=== PATIENT | male | born 1940 | race Caucasian/White ===

== ENCOUNTER → 2018-03-09 | Outpatient (CLI) | payer MEDICARE ==
[~2018-03-09] MED LIST: REGADENOSON 0.4 MG/5 ML SYRINGE ONE
== END | disposition home or self-care (01) ==
LOC: CFH 06:40
PROVIDERS: ATTEND Internal Medicine Cardiovascular Disease
DX: I25.10 Atherosclerotic heart disease of native coronary artery without angina pectoris (principal); I10 Essential (primary) hypertension; I25.2 Old myocardial infarction
CPT/HCPCS: 78452; 93017; 93306; J2785; A9502

== ENCOUNTER 2018-09-16 11:05 | Inpatient (IN) | payer MEDICARE ==
[~2018-09-16] VITALS: Ht 180.3 cm; Wt 91.0 kg
--- NOTE | 2018-09-16 11:39 | NUR ---
Assumed care of patient. Patient reports taking nightly meds last night and feels as if one is still suck in his throat. C/O difficulty swallowing and throat pain. Placed on NIBP and pulse ox. at bedside. Will continue to monitor.
[2018-09-16] MEDS ORDERED: ESOM40CA PO (11:50)
[2018-09-16] MEDS ORDERED: FLUT12HF2 INH (11:50)
[2018-09-16] MEDS ORDERED: TRIA1CAP3 PO (11:50)
[2018-09-16] MEDS ORDERED: PARO40TA61 PO (11:50)
[2018-09-16] MEDS ORDERED: ASPI-496 PO (11:50)
[2018-09-16] MEDS ORDERED: CHOL2000 PO (11:50)
[2018-09-16] MEDS ORDERED: LOSA100T7 PO (11:50)
[2018-09-16] MEDS ORDERED: TIOT18CA INH (11:50)
[2018-09-16] MEDS ORDERED: CARV-39 PO (11:50)
[2018-09-16] MEDS ORDERED: POTA10CA PO (11:50)
[2018-09-16] MEDS ORDERED: ARMO250T2 PO (11:50)
[2018-09-16] MEDS ORDERED: CLON1TAB11 PO (11:50)
[2018-09-16] MEDS ORDERED: ATOR80TA PO (11:50)
[2018-09-16] MEDS ORDERED: TIOT4MIS5 INH (11:50)
[2018-09-16] MEDS ORDERED: AMLO-150 PO (11:50)
[2018-09-16] MEDS ORDERED: SODIUM CHLORIDE 0.9% 1,000 ML IV ONE (12:00)
[2018-09-16 12:08] LABS: MEAN CORPUSCULAR HEMOGLOBIN 30.8 pg (27.5-34.5); MEAN CORPUSCULAR HGB CONC 33.9 g/dL (33.2-36.2); MEAN CORPUSCULAR VOLUME 90.8 fL (81-97); MEAN PLATELET VOLUME 6.7 fL (7.4-10.4); PLATELET COUNT 308 x10^3/uL (130-400); RED BLOOD COUNT 4.31 x10^6/uL (4.38-5.82); RED CELL DISTRIBUTION WIDTH 13.7 % (9.4-14.8)
[2018-09-16 12:21] LABS: INTERNATIONAL NORMALIZED RATIO 1.06 (0.93-1.1); PROTHROMBIN TIME 11.2 Seconds (9.6-11.5)
[2018-09-16 12:26] LABS: ALBUMIN 3.6 g/dL (3.4-5.0); ANION GAP 9 mmol/L (5-15); CALCIUM 8.7 mg/dL (8.5-10.1); CHLORIDE 89 mmol/L (98-107)
[2018-09-16 12:31] LABS: ALANINE AMINOTRANSFERASE 29 U/L (12-78); ALKALINE PHOSPHATASE 97 U/L (45-117); BILIRUBIN,TOTAL 1.3 mg/dL (0.2-1.0); CREATININE 0.78 mg/dL (0.7-1.3); TOTAL PROTEIN 6.7 g/dL (6.4-8.2)
[2018-09-16 12:36] LABS: MD YES
[2018-09-16 12:38] LABS: <RBC MORPHOLOGY> NORMAL; BANDS%(MANUAL) 7 % (0-7); EOS#(MANUAL) 0.23 x10^3/uL (0.0-0.4); EOS% (MANUAL) 1 % (1-7); LYMPH#(MANUAL) 0.91 x10^3/uL (1-3.4); LYMPHS% (MANUAL) 4 % (22-44); MONOS% (MANUAL) 7 % (2-9); SEG#(MANUAL) 18.47 x10^3/uL (1.8-6.8); SEGS% (MANUAL) 81 % (42-75)
[2018-09-16 12:39] LABS: <PLATELET ESTIMATE> ADEQUATE; <PLT MORPHOLOGY> NORMAL PLT MORPH
[2018-09-16] MEDS ORDERED: CEFTRIAXONE PMX 1GM/50ML 50 ML ONE (12:59)
[2018-09-16] MEDS ORDERED: AZITHROMYCIN 500 MG in SODIUM CHLORIDE 0.9% 250 ML IV ONE (13:00)
[2018-09-16] MEDS ORDERED: CEFTRIAXONE PMX 1GM/50ML 50 ML IV ONE (13:00)
--- NOTE | 2018-09-16 13:01 | NUR ---
Delon cali. NAD.
[2018-09-16] MEDS ORDERED: MORPHINE SULFATE 4 MG/ML, 1ML ONE (13:07)
[2018-09-16] MEDS ORDERED: morphine SULFATE 10 MG/ML, 1ML IVPush ONE (13:30)
--- NOTE | 2018-09-16 14:01 | NUR ---
Zithromax viraj. VSS. No other needs.
--- NOTE | 2018-09-16 14:27 | NUR ---
Report to MIRIAM Danielle.
[2018-09-16 15:18] VITALS: BP 162/69
[2018-09-16] MEDS ORDERED: MORPHINE SULFATE 4 MG/ML, 1ML IVPush PRN (16:30)
[2018-09-16] MEDS: AMPICILLIN/SULBACTAM 3 GM in SODIUM CHLORIDE 0.9% 100 ML IV SCH (18:37)
[2018-09-16] MEDS: D5%-0.9% NACL 1,000 ML IV SCH (20:04)
[2018-09-16 20:13] VITALS: BP 141/64
[2018-09-16] MEDS ORDERED: ALBUTEROL/IPRATROPIUM 2.5MG/0.5MG, 3 ML ONE (21:30)
[2018-09-16] MEDS: MORPHINE SULFATE 4 MG/ML, 1ML IVPush PRN (21:55)
[2018-09-16] MEDS: HEPARIN 5,000 UNITS/ML, 1ML SQ SCH (21:55)
[2018-09-17] MEDS: AMPICILLIN/SULBACTAM 3 GM in SODIUM CHLORIDE 0.9% 100 ML IV SCH ×4 (00:42→18:04)
[2018-09-17 01:16] VITALS: BP 138/70
[2018-09-17] MEDS: D5%-0.9% NACL 1,000 ML IV SCH ×3 (04:13→18:41)
[2018-09-17] MEDS: MORPHINE SULFATE 4 MG/ML, 1ML IVPush PRN ×2 (04:13→11:21)
[2018-09-17 05:02] LABS: MEAN CORPUSCULAR HEMOGLOBIN 31.2 pg (27.5-34.5); MEAN CORPUSCULAR HGB CONC 33.7 g/dL (33.2-36.2); MEAN CORPUSCULAR VOLUME 92.6 fL (81-97); MEAN PLATELET VOLUME 7.2 fL (7.4-10.4); PLATELET COUNT 274 x10^3/uL (130-400); RED BLOOD COUNT 4.24 x10^6/uL (4.38-5.82); RED CELL DISTRIBUTION WIDTH 13.8 % (9.4-14.8)
[2018-09-17 05:10] LABS: ANION GAP 3 mmol/L (5-15); CHLORIDE 95 mmol/L (98-107)
[2018-09-17 05:11] LABS: CREATININE 0.82 mg/dL (0.7-1.3)
[2018-09-17 05:53] LABS: BASOPHILS # (AUTO) 0.01 x10^3/uL (0-0.1); BASOPHILS % (AUTO) 0 % (0-1); EOSINOPHILS # (AUTO) 0.46 x10^3/uL (0-0.4); EOSINOPHILS % (AUTO) 3 % (1-7); LYMPHOCYTES # (AUTO) 0.78 x10^3/uL (1-3.4); LYMPHOCYTES % (AUTO) 4 % (22-44); MD SCAN; MONOCYTES % (AUTO) 5 % (2-9); NEUTROPHILS # (AUTO) 15.87 x10^3/uL (1.8-6.8); NEUTROPHILS % (AUTO) 89 % (42-75)
[2018-09-17] MEDS: HEPARIN 5,000 UNITS/ML, 1ML SQ SCH ×3 (06:13→21:56)
[2018-09-17] MEDS: ALBUTEROL/IPRATROPIUM 2.5MG/0.5MG, 3 ML NPPB SCH ×4 (06:55→18:54)
[2018-09-17 07:35] VITALS: BP 127/63
[2018-09-17] MEDS: PANTOPRAZOLE 40 MG IV IVPush SCH (09:12)
[2018-09-17 13:25] VITALS: BP 126/67
[2018-09-17] MEDS: methylPREDNISolone SOD SUCC 40 MG/ML IV SCH (16:43)
[2018-09-17 20:02] VITALS: BP 149/71
[2018-09-18] MEDS: AMPICILLIN/SULBACTAM 3 GM in SODIUM CHLORIDE 0.9% 100 ML IV SCH ×4 (00:23→18:03)
[2018-09-18] MEDS: D5%-0.9% NACL 1,000 ML IV SCH ×3 (03:29→22:40)
[2018-09-18 03:55] VITALS: BP 134/72
[2018-09-18] MEDS: methylPREDNISolone SOD SUCC 40 MG/ML IV SCH ×2 (04:38→16:20)
[2018-09-18 05:19] LABS: ANION GAP 6 mmol/L (5-15); CALCIUM 7.7 mg/dL (8.5-10.1); CHLORIDE 102 mmol/L (98-107); CREATININE 0.77 mg/dL (0.7-1.3)
[2018-09-18] MEDS: HEPARIN 5,000 UNITS/ML, 1ML SQ SCH ×2 (05:42→16:20)
[2018-09-18 06:12] LABS: BASOPHILS % (AUTO) 0 % (0-1); EOSINOPHILS % (AUTO) 0 % (1-7); LYMPHOCYTES # (AUTO) 0.32 x10^3/uL (1-3.4); LYMPHOCYTES % (AUTO) 4 % (22-44); MD NO; MEAN CORPUSCULAR HEMOGLOBIN 30.9 pg (27.5-34.5); MEAN CORPUSCULAR HGB CONC 33.6 g/dL (33.2-36.2); MEAN CORPUSCULAR VOLUME 91.9 fL (81-97); MEAN PLATELET VOLUME 7.2 fL (7.4-10.4); MONOCYTES # (AUTO) 0.22 x10^3/uL (0.2-0.8); MONOCYTES % (AUTO) 2 % (2-9); NEUTROPHILS # (AUTO) 8.56 x10^3/uL (1.8-6.8); NEUTROPHILS % (AUTO) 94 % (42-75); PLATELET COUNT 236 x10^3/uL (130-400); RED BLOOD COUNT 3.76 x10^6/uL (4.38-5.82); RED CELL DISTRIBUTION WIDTH 13.4 % (9.4-14.8)
[2018-09-18 07:20] VITALS: BP 137/64
[2018-09-18] MEDS: ALBUTEROL/IPRATROPIUM 2.5MG/0.5MG, 3 ML NPPB SCH ×4 (08:15→20:00)
[2018-09-18] MEDS: PANTOPRAZOLE 40 MG IV IVPush SCH (12:17)
[2018-09-18 12:40] VITALS: BP 164/76
--- NOTE | 2018-09-18 15:16 | NUR ---
RECOMMEND: CHOPPED DIET WITH NECTAR THICK LIQUIDS; STRICT ASPIRATION PRECAUTIONS - ORANGE SHEET IN ROOM Addendum: 09/18/18 at 1517 by Misti ZUNIGA Amended: Links added.
[2018-09-18 21:15] VITALS: BP 160/68
[2018-09-19] MEDS: AMPICILLIN/SULBACTAM 3 GM in SODIUM CHLORIDE 0.9% 100 ML IV SCH ×3 (00:32→12:32)
[2018-09-19] MEDS: ALBUTEROL/IPRATROPIUM 2.5MG/0.5MG, 3 ML NPPB SCH ×5 (00:45→19:21)
[2018-09-19] MEDS: methylPREDNISolone SOD SUCC 40 MG/ML IV SCH (04:31)
[2018-09-19 04:38] VITALS: BP 138/68
[2018-09-19 05:26] LABS: BASOPHILS # (AUTO) 0.01 x10^3/uL (0-0.1); BASOPHILS % (AUTO) 0 % (0-1); EOSINOPHILS % (AUTO) 3 % (1-7); LYMPHOCYTES # (AUTO) 0.57 x10^3/uL (1-3.4); LYMPHOCYTES % (AUTO) 4 % (22-44); MD NO; MEAN CORPUSCULAR HEMOGLOBIN 31.4 pg (27.5-34.5); MEAN CORPUSCULAR HGB CONC 34.2 g/dL (33.2-36.2); MEAN CORPUSCULAR VOLUME 91.7 fL (81-97); MEAN PLATELET VOLUME 7.2 fL (7.4-10.4); MONOCYTES % (AUTO) 3 % (2-9); NEUTROPHILS # (AUTO) 14.22 x10^3/uL (1.8-6.8); NEUTROPHILS % (AUTO) 91 % (42-75); PLATELET COUNT 245 x10^3/uL (130-400); RED BLOOD COUNT 3.59 x10^6/uL (4.38-5.82); RED CELL DISTRIBUTION WIDTH 13.6 % (9.4-14.8)
[2018-09-19 05:33] LABS: ANION GAP 8 mmol/L (5-15); CALCIUM 8.3 mg/dL (8.5-10.1); CHLORIDE 104 mmol/L (98-107)
[2018-09-19 05:34] LABS: CREATININE 0.74 mg/dL (0.7-1.3)
[2018-09-19] MEDS: D5%-0.9% NACL 1,000 ML IV SCH ×3 (06:23→23:20)
[2018-09-19 07:44] VITALS: BP 155/73
[2018-09-19] MEDS: HEPARIN 5,000 UNITS/ML, 1ML SQ SCH ×3 (08:00→15:27)
[2018-09-19] MEDS ORDERED: PANTOPROZOLE 40MG TABLET PO SCH (11:03)
[2018-09-19 13:48] VITALS: BP 171/74
[2018-09-19] MEDS: PIPERACILLIN/TAZO/PMX 3.375GM 50 ML IV SCH ×2 (17:35→23:20)
[2018-09-19] MEDS: OMEPRAZOLE 20 MG CAPSULE.DR PO SCH (19:32)
[2018-09-19 19:40] VITALS: BP 157/66
[2018-09-20 03:02] VITALS: BP 157/73
[2018-09-20] MEDS: OMEPRAZOLE 20 MG CAPSULE.DR PO SCH (05:24)
[2018-09-20] MEDS: PIPERACILLIN/TAZO/PMX 3.375GM 50 ML IV SCH (05:24)
[2018-09-20 06:05] LABS: BASOPHILS # (AUTO) 0.01 x10^3/uL (0-0.1); BASOPHILS % (AUTO) 0 % (0-1); EOSINOPHILS % (AUTO) 0 % (1-7); LYMPHOCYTES # (AUTO) 1.02 x10^3/uL (1-3.4); LYMPHOCYTES % (AUTO) 8 % (22-44); MD NO; MEAN CORPUSCULAR HEMOGLOBIN 30.9 pg (27.5-34.5); MEAN CORPUSCULAR VOLUME 90.7 fL (81-97); MEAN PLATELET VOLUME 7.2 fL (7.4-10.4); MONOCYTES # (AUTO) 0.81 x10^3/uL (0.2-0.8); MONOCYTES % (AUTO) 6 % (2-9); NEUTROPHILS # (AUTO) 10.91 x10^3/uL (1.8-6.8); NEUTROPHILS % (AUTO) 86 % (42-75); PLATELET COUNT 235 x10^3/uL (130-400); RED BLOOD COUNT 3.59 x10^6/uL (4.38-5.82); RED CELL DISTRIBUTION WIDTH 13.5 % (9.4-14.8)
[2018-09-20 06:16] LABS: ALBUMIN 2.7 g/dL (3.4-5.0); ANION GAP 7 mmol/L (5-15); CHLORIDE 106 mmol/L (98-107)
[2018-09-20] MEDS: ALBUTEROL/IPRATROPIUM 2.5MG/0.5MG, 3 ML NPPB SCH (07:00)
[2018-09-20 07:01] VITALS: BP 164/63
[2018-09-20] MEDS ORDERED: ALBUTEROL/IPRATROPIUM 2.5MG/0.5MG, 3 ML NPPB PRN (08:00)
[2018-09-20] MEDS: HEPARIN 5,000 UNITS/ML, 1ML SQ SCH ×2 (08:04)
[2018-09-20] MEDS: D5%-0.9% NACL 1,000 ML IV SCH (08:05)
== END 2018-09-20 10:25 | disposition left against medical advice (07) | DRG 871 ==
LOC: ED 13:54 → 3NE 14:00
PROVIDERS: ADMIT Hospitalist; ATTEND Hospitalist
DX: A41.9 Sepsis, unspecified organism (principal); J69.0 Pneumonitis due to inhalation of food and vomit; J96.01 Acute respiratory failure with hypoxia; E87.1 Hypo-osmolality and hyponatremia; J98.11 Atelectasis; J44.1 Chronic obstructive pulmonary disease with (acute) exacerbation; R13.12 Dysphagia, oropharyngeal phase; Z53.21 Procedure and treatment not carried out due to patient leaving prior to being seen by health care provider; E87.8 Other disorders of electrolyte and fluid balance, not elsewhere classified; I25.10 Atherosclerotic heart disease of native coronary artery without angina pectoris; I10 Essential (primary) hypertension; K21.0 Gastro-esophageal reflux disease with esophagitis; K22.4 Dyskinesia of esophagus; M25.78 Osteophyte, vertebrae; E78.00 Pure hypercholesterolemia, unspecified; E78.5 Hyperlipidemia, unspecified; G47.30 Sleep apnea, unspecified; I25.2 Old myocardial infarction; Z87.891 Personal history of nicotine dependence; Z95.5 Presence of coronary angioplasty implant and graft; Z99.81 Dependence on supplemental oxygen
CPT/HCPCS: 36415; 71045; 71250; 74220; 74230; 80048; 80053; 82040; 83605; 84145; 85025; 85610; 85730; 87040; 87070; 87077; 87186; 87205; 94640; G0378; J0295; J0456; J0696; J1644; J2543; J7042; J7620; C9113; J2270; J2920; J7030; J7050; J7512

== ENCOUNTER 2020-11-04 10:58 | Emergency (ER) | payer MEDICARE ==
[~2020-11-04] VITALS: Ht 180.3 cm; Wt 89.1 kg
[~2020-11-04 10:58] MED LIST changes: +AMLO-150 PO; +ARMO250T2 PO; +ASPI-496 PO; +ATOR80TA PO; +CARV-39 PO; +CHOL2000 PO; +CLON1TAB11 PO; +ESOM40CA PO; +FLUT12HF2 INH; +LOSA100T14 PO; +PARO40TA61 PO; +POTA10CA PO; -REGADENOSON 0.4 MG/5 ML SYRINGE ONE; +TIOT18CA INH; +TIOT4MIS5 INH; +TRIA1CAP3 PO
[2020-11-04] MEDS ORDERED: SODIUM CHLORIDE FLUSH 10ML SYR IVF ONE (11:30)
--- NOTE | 2020-11-04 11:30 | NUR ---
PT AMBULATORY TO ROOM 26 W./ C/O SOB X 10 DAYS W/ GREEN SPUTUM. PER "THAT'S WHEN THE COUGH STARTED". PT HAS HX COPD. NO ACUTE DISTRESS NOTED. PT RESTING ON GURNEY. VSS. PIV INITIATED. ERP DR. DUQUE AT BEDSIDE FOR EVAL.
[2020-11-04] MEDS ORDERED: ROSU20TA2 PO (11:38)
[2020-11-04] MEDS ORDERED: DOCU-131 PO (11:38)
[2020-11-04] MEDS ORDERED: ASPI-963 PO (11:38)
[2020-11-04] MEDS ORDERED: POTA10CA PO (11:38)
[2020-11-04] MEDS ORDERED: PANT40TA3 PO (11:38)
[2020-11-04 11:49] LABS: BASOPHILS % (AUTO) 2 % (0-1); EOSINOPHILS % (AUTO) 10 % (1-7); LYMPHOCYTES % (AUTO) 18 % (22-44); MEAN CORPUSCULAR HEMOGLOBIN 31.4 pg (27.5-34.5); MEAN CORPUSCULAR HGB CONC 35.1 g/dL (33.2-36.2); MEAN PLATELET VOLUME 7.2 fL (7.4-10.4); MONOCYTES % (AUTO) 8 % (2-9); NEUTROPHILS % (AUTO) 63 % (42-75); PLATELET COUNT 259 x10^3/uL (130-400); RED BLOOD COUNT 4.72 x10^6/uL (4.38-5.82); RED CELL DISTRIBUTION WIDTH 13.6 % (9.4-14.8)
[2020-11-04 11:50] LABS: MD NO
[2020-11-04 11:54] LABS: ALANINE AMINOTRANSFERASE 26 U/L (12-78); ANION GAP 6 mmol/L (5-15); CALCIUM 9.2 mg/dL (8.5-10.1); CHLORIDE 97 mmol/L (98-107)
[2020-11-04 11:59] LABS: BILIRUBIN,TOTAL 0.7 mg/dL (0.2-1.0); TOTAL PROTEIN 7.3 g/dL (6.4-8.2); TROPONIN I < 0.015 ng/mL (0.000-0.045)
[2020-11-04 12:04] LABS: ALKALINE PHOSPHATASE 96 U/L (45-117); CREATININE 0.92 mg/dL (0.7-1.3)
--- NOTE | 2020-11-04 12:13 | NUR ---
PT RESTING ON GURNEY. NADN. YUNG.
[2020-11-04 12:52] VITALS: BP 116/68
--- NOTE | 2020-11-04 12:53 | NUR ---
PT RESTING ON GURNEY. NADN. YUNG.
== END 2020-11-04 13:05 | disposition home or self-care (01) ==
LOC: ED 12:12
DX: J43.9 Emphysema, unspecified (principal); R06.02 Shortness of breath; R00.0 Tachycardia, unspecified; I10 Essential (primary) hypertension; E11.9 Type 2 diabetes mellitus without complications; I25.2 Old myocardial infarction; K21.9 Gastro-esophageal reflux disease without esophagitis
CPT/HCPCS: 36415; 71045; 80053; 83880; 84484; 85025; 93005; 99285

== ENCOUNTER → 2021-03-05 | Outpatient (CLI) | payer MEDICARE ==
[~2021-03-05] MED LIST changes: +ASPI-963 PO; +DOCU-131 PO; +PANT40TA3 PO; +ROSU20TA2 PO
== END | disposition home or self-care (01) ==
LOC: CVU 08:33
PROVIDERS: ATTEND Internal Medicine Cardiovascular Disease
DX: I65.23 Occlusion and stenosis of bilateral carotid arteries (principal); I10 Essential (primary) hypertension; I25.2 Old myocardial infarction
CPT/HCPCS: 93880